=== PATIENT | female | born 1980 | race Caucasian/White ===

== ENCOUNTER 2017-01-02 08:38 | Emergency (ER) | payer MEDICARE, MEDICAID ==
--- NOTE | 2017-01-02 09:16 | EDM.PDOC ---
ED HPI GENERAL MEDICAL PROBLEM - General Chief Complaint: FRUIT I FARMWORKER Problem Stated Complaint: FEMALE ISSUES Time Seen by Provider: 01/02/17 09:15 Source of Information: Reports: Patient, RN, RN Notes Reviewed History Limitations: Reports: No Limitations - History of Present Illness INITIAL COMMENTS - FREE TEXT/NARRATIVE: Pt is from out of town, presents to ER with c/o onset of thick vaginal discharge with greenish tinge last night. She notices it most when she wipes after urination. Admits to mild irritation and itching. Denies pain, dysuria, fever, chills, N/V, flank pain, or abdominal/pelvic pain. Pt took a home test for yeast infection and it was negative. Onset Date: 01/01/17 Duration: Constant Severity: Moderate Improves with: Reports: None Worsens with: Reports: None Associated Symptoms: Reports: No Other Symptoms - Related Data Allergies Allergy/AdvReac Type Severity Reaction Status Date / Time Penicillins Allergy Anaphylactic Verified 01/02/17 09:24 Shock Sulfa (Sulfonamide Allergy Vomiting Verified 01/02/17 09:24 Antibiotics) vancomycin Allergy Itching Verified 01/02/17 09:24 Home Meds: Home Meds Dextroamphetamine/Amphetamine [Adderall 20 mg Tablet] 20 mg PO DAILY 01/02/17 [ History] Dextroamphetamine/Amphetamine [Adderall Xr 20 mg Capsule] 20 mg PO DAILY [History] Omeprazole 20 mg PO DAILY 01/02/17 [History] Past Medical History Genitourinary History: Reports: UTI, 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 (See Below) (Bacterial Vaginosis) Psychiatric History: 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) - Past Surgical History Female Surgical History: Reports: Tubal Ligation Social & Family History - Family History Family Medical History: Noncontributory - Tobacco Use Smoking Status *Q: Never Smoker - Alcohol Use Alcohol Use History: No - Recreational Drug Use Recreational Drug Use: Yes Recreational Drug Use Frequency: Not Used In Over 6 Months (clean/sober x11 months) - Sexual History Sexual History: Reports: Sexually Active - Living Situation & Occupation Living situation: Reports: with Family ED ROS GENERAL - Review of Systems Review Of Systems: ROS reveals no pertinent complaints other than HPI. ED EXAM, RENAL/ - Physical Exam Exam: See Below Exam Limited By: No Limitations General Appearance: Alert, WD/WN, No Apparent Distress Eye Exam: Bilateral Eye: Normal Inspection Nose: Normal Inspection Throat/Mouth: Normal Inspection Head: Atraumatic, Normocephalic Neck: Normal Inspection Respiratory/Chest: No Respiratory Distress, Lungs Clear, Normal Breath Sounds, No Accessory Muscle Use, Chest Non-Tender Cardiovascular: Regular Rate, Rhythm GI/Abdominal: Normal Bowel Sounds, Soft, Non-Tender, No Distention. No: Guarding, Rigid, Rebound (Female) Exam: Deferred (pt declines, but will allow if UA does not provide diagnostic information) Rectal (Female) Exam: Deferred Back Exam: Normal Inspection. No: CVA Tenderness (L), CVA Tenderness (R) Extremities: Normal Inspection Neurological: Alert, Oriented, CN II-XII Intact, Normal Cognition, Normal Gait, No Motor/Sensory Deficits Psychiatric: Normal Affect, Normal Mood Skin Exam: Warm, Dry, Intact, Normal Color, No Rash Course - Vital Signs Last Recorded V/S: Last Vital Signs Temp 36.4 C 01/02/17 09:20 Pulse 89 01/02/17 09:20 Resp 14 01/02/17 09:20 BP 117/75 01/02/17 09:20 Pulse Ox 96 01/02/17 09:20 - Orders/Labs/Meds Orders: Active Orders 24 hr Category Date Time Status CHLAMYDIA TRACHOMATIS/GC AMPLF Routine Lab 01/02/17 09:49 Received CULTURE URINE [RM] Stat Lab 01/02/17 09:49 Received Ondansetron [Zofran ODT] Med 01/02/17 10:11 Once 4 mg PO ONETIME ONE Medication Orders Ondansetron HCl (Zofran Odt) 4 mg PO ONETIME ONE Stop: 01/02/17 10:12 Labs: Laboratory Tests 01/02/17 Range/Units 09:29 Urine Color Yellow (YELLOW) Urine Appearance Slightly cloudy (CLEAR) Urine pH 6.5 (5.0-9.0) Ur Specific [place] 1.015 (1.005-1.030) Urine Protein Negative (NEGATIVE) Urine Glucose (UA) Negative (NEGATIVE) Urine Ketones Negative (NEGATIVE) Urine Occult Blood Trace-intact H (NEGATIVE) Urine Nitrite Positive H (NEGATIVE) Urine Bilirubin Negative (NEGATIVE) Urine Urobilinogen 0.2 (0.2-1.0) mg/dL Ur Leukocyte Esterase Large H (NEGATIVE) Urine RBC 5-10 H /HPF Urine WBC 30-40 H (0-5/HPF) /HPF Ur Epithelial Cells Many H /HPF Urine Bacteria Moderate H (0-FEW/HPF) /HPF Urine Mucus Moderate H /LPF Urine Trichomonas Present H (0/HPF) /HPF Meds: Medications Generic Name Dose Route Start Last Admin Trade Name Freq PRN Reason Stop Dose Admin Ondansetron HCl 4 mg 01/02/17 10:11 Zofran Odt PO 01/02/17 10:12 ONETIME ONE Discontinued Medications Generic Name Dose Route Start Last Admin Trade Name Freq PRN Reason Stop Dose Admin Azithromycin 1,000 mg 01/02/17 10:10 Zithromax PO 01/02/17 10:11 ONETIME ONE Ciprofloxacin 500 mg 01/02/17 10:04 Ciprofloxacin Hcl PO 01/02/17 10:05 ONETIME ONE Ceftriaxone Sodium 250 mg/ 0 mg 01/02/17 10:10 Lidocaine HCl 0.9 ml IM 01/02/17 10:11 ONETIME ONE Metronidazole 2,000 mg 01/02/17 10:03 Metronidazole PO 01/02/17 10:04 ONETIME ONE Departure - Departure Time of Disposition: 10:12 Disposition: Home, Self-Care 01 Condition: Good Clinical Impression: Trichomoniasis, urogenital, Sexually transmitted disease (STD) UTI (urinary tract infection) Qualifiers: Urinary tract infection type: site unspecified Hematuria presence: with hematuria Qualified Code(s): N39.0 - Urinary tract infection, site not specified ; R31.9 - Hematuria, unspecified - Discharge Information Instructions: Sexually Transmitted Disease, [id number], Trichomoniasis, Urinary Tract Infection, Adult, [id number] Forms: ED Department Discharge Additional Instructions: Rx: Cipro 500mg No sexual activity until your partner has been tested and treated, and you have been rechecked by your doctor in clinic in 5 to 7 days. Follow up in clinic in 5 to 7 days for recheck. - My Orders Last 24 Hours: My Active Orders 01/02/17 09:49 CHLAMYDIA TRACHOMATIS/GC AMPLF Routine CULTURE URINE [RM] Stat 01/02/17 10:11 Ondansetron [Zofran ODT] 4 mg PO ONETIME ONE - Assessment/Plan Last 24 Hours: My Active Orders 01/02/17 09:49 CHLAMYDIA TRACHOMATIS/GC AMPLF Routine CULTURE URINE [RM] Stat 01/02/17 10:11 Ondansetron [Zofran ODT] 4 mg PO ONETIME ONE
[2017-01-02 09:22] VITALS: BP 117/75
[2017-01-02] MEDS ORDERED: metroNIDAZOLE 250 MG Tab PO ONE (10:03)
[2017-01-02] MEDS ORDERED: Ciprofloxacin 500 MG Tab PO ONE (10:04)
[2017-01-02] MEDS ORDERED: Azithromycin 250 MG Tab PO ONE (10:10)
[2017-01-02] MEDS ORDERED: cefTRIAXone 250 MG, Lidocaine 1% 0.9 ML IM ONE ×2 (10:10)
[2017-01-02] MEDS ORDERED: Ondansetron 4 MG Tab.DIS PO ONE (10:11)
== END 2017-01-02 10:29 | disposition home or self-care (01) ==
LOC: DL.ED 08:38
DX: A59.00 Urogenital trichomoniasis, unspecified (principal); A64 Unspecified sexually transmitted disease; N39.0 Urinary tract infection, site not specified; Z98.51 Tubal ligation status; Z79.899 Other long term (current) drug therapy; Z88.0 Allergy status to penicillin; Z88.2 Allergy status to sulfonamides; Z88.1 Allergy status to other antibiotic agents
CPT/HCPCS: 81001; 87086; 87491; 87591; 96372; 99284; A9270; J0696